=== PATIENT | male | born 1990 | race Asian ===

== ENCOUNTER 2019-09-12 14:11 | Emergency (ER) | payer MEDICAID ==
[~2019-09-12] VITALS: Ht 160 cm; Wt 75.0 kg
[2019-09-12 14:24] VITALS: BP 123/81
[2019-09-12] MEDS ORDERED: LIDOcaine 1% W/epiNEPHrine 1:100,000 20ml vial SQ ONE (14:50)
== END 2019-09-12 15:20 | disposition home or self-care (01) ==
LOC: ER 14:12
DX: S60.351A Superficial foreign body of right thumb, initial encounter (principal); F12.90 Cannabis use, unspecified, uncomplicated; W45.8XXA Other foreign body or object entering through skin, initial encounter; Y93.89 Activity, other specified; Y92.89 Other specified places as the place of occurrence of the external cause; Y99.8 Other external cause status
CPT/HCPCS: 96372; 99284